=== PATIENT | male | born 1975 | race Caucasian/White ===

== ENCOUNTER 2016-10-03 10:19 | Emergency (ER) | payer OTHER ==
[~2016-10-03] VITALS: Ht 180.3 cm; Wt 72.3 kg
[~2016-10-03 10:19] MED LIST: ERYT.5%O OS; TYLE3 PO; Z.0.NO CURRENT MEDS
[2016-10-03 10:26] VITALS: BP 119/75; PULSE 75; RESP 14; TEMP 97.8; O2SAT 98
--- NOTE | 2016-10-03 11:09 | PD ---
HPI Chief Complaint: GI Complaint Time Seen by Provider: 10:38 Travel History International Travel<30 days: No Contact w/Intl Traveler<30days: No Traveled to known affect area: No History of Present Illness HPI 41-year-old male who presents with rectal pain. Patient has a history of a perirectal abscess 1 year ago. He states at that time they treated him with antibiotics and it seemed to improve. He states that 3 days ago he started expressing pain and swelling in his left perirectal area. He now has a area of hard painful swelling. He denies any fevers, chills. He states he was seen by a GI physician who told him that nothing needed to be done with the previous abscess. PFSH Past Medical History Medical History: Denies Significant Hx Tetanus Vaccination: > 5 Years Influenza Vaccination: No Past Surgical History Surgical History: No Previous Surgery Social History Alcohol Use: Yes ("SOMETIMES") Tobacco Use: No Substance Use: No Allergies-Medications (Allergen,Severity, Reaction): Coded Allergies: No Known Allergies (Verified , 10/03/16) Reported Meds & Prescriptions Reported Meds & Active Scripts Active Flagyl (Metronidazole) 500 Mg Tab 500 Mg PO TID Cipro (Ciprofloxacin HCl) 500 Mg Tab 500 Mg PO BID Review of Systems Except as stated in HPI: all other systems reviewed are Neg General / Constitutional: No: Fever, Chills Gastrointestinal: Positive: Other (left inner rectal pain with swelling), No: Nausea, Vomiting, Changes in Bowel Habits Genitourinary: No: Other Skin: Positive Other (swelling and tenderness in the left inner buttock fold by the rectum) Physical Exam Narrative GENERAL: Well-nourished, well-developed patient. SKIN: Warm and dry. HEAD: Normocephalic/atraumatic. GASTROINTESTINAL: Abdomen soft, non-tender, nondistended. On examination patient's rectum, the patient has a 3 x 3 indurated area with center fluctuance. It is tender to touch. MUSCULOSKELETAL: No cyanosis, or edema. Data Data Last Documented VS Vital Signs Date Time Temp Pulse Resp B/P Pulse Ox O2 Delivery O2 Flow Rate FiO2 10/03/16 12:45 56 16 93/52 97 Room Air 10/03/16 10:26 97.8 Orders Wound Culture And Gram Stain (10/03/16 12:06) Cefazolin Inj (Ancef Inj) (10/03/16 12:15) Lidocai-Epi 1%-1:100,000 Inj (Xylocaine- (10/03/16 12:15) Midazolam Inj (Versed Inj) (10/03/16 12:15) MDM Medical Decision Making Medical Screen Exam Complete: Yes Emergency Medical Condition: Yes Differential Diagnosis Perirectal abscess versus cellulitis versus mass Narrative Course 41-year-old gentleman who presents with rectal pain. The patient has what appears to be a perirectal abscess in his left inner buttock cold. The patient is afebrile. It is tender to touch. Dr. Garcia, general surgeon, was called and was gracious enough to come in and evaluated the patient. He did a bedside I and D. The patient tolerated the procedure well. He requested that we place the patient on Cipro and Flagyl. I will also write her prescription for Lortab. The patient is instructed to use sitz baths and to return of he develops any increased pain, fevers chills, or any other reason. Diagnosis Primary Impression: Perirectal abscess Additional Instructions: Sits baths 3 times daily for comfort. Return if increased pain, fevers chills, or any other reason that concerned him. Scripts Hydrocodone-Acetaminophen (Lortab)5-325 Mg Tab1 Tab PO Q6H PRN (PAIN) #10 TAB Ref 0 Prov:Doyle Gaston MD 10/03/16 Metronidazole (Flagyl)500 Mg Xdd400 Mg PO TID #21 TAB Ref 0 Prov:Doyle Gaston MD 10/03/16 Ciprofloxacin (Cipro)500 Mg Ilq900 Mg PO BID #14 TAB Ref 0 Prov:Doyle Gaston MD 10/03/16 Disposition: 01 DISCHARGE HOME Condition: Stable Doyle Gaston MD Oct 03, 2016 11:09
[2016-10-03] MEDS ORDERED: LIDOCAINE 1%/EPINEPHrine 1:100,000 SOLN 20 ML VIAL INFIL ONE (12:15)
[2016-10-03] MEDS ORDERED: ceFAZolin INJ 1,000 MG VIAL IM ONE (12:15)
[2016-10-03] MEDS ORDERED: MIDAZOLAM HCL 5 MG/ML VIAL (1 ML) IVP ONE (12:15)
[2016-10-03 12:25] VITALS: BP 111/58; PULSE 57; RESP 16; O2SAT 97
[2016-10-03 12:45] VITALS: BP 93/52; PULSE 56; RESP 16; O2SAT 97
[2016-10-03] MEDS ORDERED: CIPR-9 PO (12:53)
[2016-10-03] MEDS ORDERED: HYDR-3533 PO (12:53)
[2016-10-03] MEDS ORDERED: METR-1 PO (12:53)
[2016-10-03 13:10] VITALS: BP 109/67; PULSE 53; RESP 16; O2SAT 99
--- NOTE | 2016-10-04 11:17 | MP ---
cc: LEIGH DURAND MD DATE OF SURGERY 10/03/2016 PREOPERATIVE DIAGNOSIS Left buttock perirectal abscess POSTOPERATIVE DIAGNOSIS Left buttock perirectal abscess PROCEDURE I&D of perirectal abscess. SURGEON Leigh Durand MD ANESTHESIA 1% Xylocaine and conscious sedation Versed PROCEDURE The patient prepped and draped in the usual fashion. The area filtrated with 1% Xylocaine. The patient was given Versed. The incision made along side the abscess on the left buttock which was drained of about 15 cc of purulent material obtained which is cultured. Opened up with finger and then irrigated with saline and packing inserted, dressing applied. The patient tolerated the procedure well. Leigh Durand SJ/DJL /4:59 PM /11:15 AM
== END 2016-10-03 14:19 | disposition home or self-care (01) ==
LOC: NEPC 10:19
DX: K61.1 Rectal abscess (principal); B95.61 Methicillin susceptible Staphylococcus aureus infection as the cause of diseases classified elsewhere
CPT/HCPCS: 46040; 86403; 87070; 87186; 96372; 99283; J0690; J2250

== ENCOUNTER 2016-10-04 19:50 | Emergency (ER) | payer OTHER ==
[~2016-10-04] VITALS: Ht 182.9 cm; Wt 72.0 kg
[~2016-10-04 19:50] MED LIST changes: +CIPR-9 PO; -ERYT.5%O OS; +HYDR-3533 PO; +METR-1 PO; -TYLE3 PO; -Z.0.NO CURRENT MEDS
[2016-10-04 19:52] VITALS: BP 130/77; PULSE 76; RESP 16; TEMP 98.2; O2SAT 98
--- NOTE | 2016-10-04 20:57 | PD ---
HPI Chief Complaint: Skin Problem Time Seen by Provider: 20:47 Travel History International Travel<30 days: No Contact w/Intl Traveler<30days: No Traveled to known affect area: No History of Present Illness HPI 41-year-old white male presents to emergency department for recheck of a perirectal abscess which was incised and drained yesterday. He states that he had a high fever yesterday. This was followed by a low-grade fever earlier today before coming in. He states that he has been taking his antibiotics and we should. He states that he has not been doing sitz baths or doing any warm compresses. He was instructed to come back to the ER if symptoms worsen. He states that he does not feel that his abscess is much improved and he was concerned regarding his temperature changes. Denies any nausea vomiting. No abdominal pain. He states the pain in his rectum is actually much better. PFSH Past Medical History Narrative Medical Denies diabetes and hypertension. History of anal abscess in the past. Tetanus Vaccination: < 5 Years Past Surgical History Surgical History: No Previous Surgery Social History Alcohol Use: Yes ("SOMETIMES") Tobacco Use: No Substance Use: No Allergies-Medications (Allergen,Severity, Reaction): Coded Allergies: No Known Allergies (Verified , 10/04/16) Reported Meds & Prescriptions Reported Meds & Active Scripts Active Lortab (Hydrocodone-Acetaminophen) 5-325 Mg Tab 1 Tab PO Q6H PRN Flagyl (Metronidazole) 500 Mg Tab 500 Mg PO TID Cipro (Ciprofloxacin HCl) 500 Mg Tab 500 Mg PO BID Review of Systems Except as stated in HPI: all other systems reviewed are Neg Physical Exam Narrative GENERAL: This is a well-nourished, well-developed patient, in no apparent distress. SKIN: No rashes, ecchymoses or lesions. Warm and dry. HEAD: Atraumatic. Normocephalic. EYES: PERRL, EOMI, no discharge or injection. No scleral icterus. EARS: Clear NOSE: Nasal turbinates appear normal. THROAT: Mucosa pink and moist. Airway patent. NECK: Trachea midline. supple, moves head freely. LUNGS: Clear to auscultation. CV: Regular in rhythm. ABDOMEN: Soft nontender. EXT: No clubbing cyanosis or edema. Rectal: The patient has a wick in a open draining abscess to his left perianal area. It appears to be decompressed. There is no purulent drainage. The wound appears to be healing well. He does not appear to be having any complications. There is no involvement of the anus. No pain in the anus. Data Data Last Documented VS Vital Signs Date Time Temp Pulse Resp B/P Pulse Ox O2 Delivery O2 Flow Rate FiO2 10/04/16 19:52 98.2 76 16 130/77 98 MDM Medical Decision Making Medical Screen Exam Complete: Yes Emergency Medical Condition: Yes Medical Record Reviewed: Yes Differential Diagnosis MDM: High Differential diagnoses: Abscess, folliculitis, cellulitis, lymphangitis, abrasion, contact dermatitis Narrative Course This is healing perianal abscess The patient is offered IV antibiotics, CBC and chemistry. The patient has declined this at this time. I've explained to him that there is no way to assess his condition otherwise. He has opted to go home and continue his oral antibiotics and follow-up. Diagnosis Primary Impression: healing perianal abscess Patient Instructions: General Instructions Additional Instructions: Rest. Finish your antibiotics as directed. Follow-up with your doctor or your GI doctor in the next 24-48 hours. Return to the ER if you have worsening fever, worsening pain, or abdominal pain. Perform sitz baths twice daily. Warm compresses. Med/Other Pt SpecificInfo: No Change to Meds Disposition: 01 DISCHARGE HOME Condition: Stable Cm Girard Oct 04, 2016 20:56
== END 2016-10-04 21:01 | disposition home or self-care (01) ==
LOC: NEPB 19:50
DX: K61.0 Anal abscess (principal); R50.9 Fever, unspecified
CPT/HCPCS: 99282

== ENCOUNTER 2016-10-05 14:59 | Emergency (ER) | payer OTHER ==
[~2016-10-05] VITALS: Ht 180.3 cm; Wt 72.5 kg
[2016-10-05 15:00] VITALS: BP 129/73; PULSE 70; RESP 16; TEMP 97.9; O2SAT 98
--- NOTE | 2016-10-05 17:40 | PD ---
HPI Chief Complaint: Wound/Suture/Staple Re-Check Time Seen by Provider: 17:39 Travel History International Travel<30 days: No Contact w/Intl Traveler<30days: No Traveled to known affect area: No History of Present Illness HPI 41-year-old male presents to the emergency department for abscess packing removal that has been there for 2 days. He said he had abscess incised and drained and packed on October 04. He's been taking his antibiotics as prescribed. Reports improvement in the area. Denies fever, chills, nausea, vomiting. No known allergies. No other modifying factors or associated signs and symptoms. PFSH Past Medical History Diminished Hearing: No Social History Alcohol Use: Yes ("SOMETIMES") Tobacco Use: No Substance Use: No Allergies-Medications (Allergen,Severity, Reaction): Coded Allergies: No Known Allergies (Verified , 10/04/16) Reported Meds & Prescriptions Reported Meds & Active Scripts Active Lortab (Hydrocodone-Acetaminophen) 5-325 Mg Tab 1 Tab PO Q6H PRN Flagyl (Metronidazole) 500 Mg Tab 500 Mg PO TID Cipro (Ciprofloxacin HCl) 500 Mg Tab 500 Mg PO BID Review of Systems Except as stated in HPI: all other systems reviewed are Neg Physical Exam Narrative GENERAL: Well-nourished, well-developed male patient, in no acute distress SKIN: Warm and dry. Left perianal abscess with packing in place; area is without surrounding erythema, edema and without tenderness on palpation. HEAD: Atraumatic. Normocephalic. EYES: Pupils equal and round. No scleral icterus. No injection or drainage. ENT: Mucosa pink and moist. Airway patent. NECK: Trachea midline. CARDIOVASCULAR: Regular rate. RESPIRATORY: No accessory muscle use. GASTROINTESTINAL: Flat. MUSCULOSKELETAL: No obvious deformities. No clubbing. No cyanosis. No edema. NEUROLOGICAL: Awake and alert. Oriented 3. No obvious cranial nerve deficits. Motor grossly within normal limits. Normal speech. PSYCHIATRIC: Appropriate mood and affect; insight and judgment normal. Data Data Last Documented VS Vital Signs Date Time Temp Pulse Resp B/P Pulse Ox O2 Delivery O2 Flow Rate FiO2 10/05/16 15:00 97.9 70 16 129/73 98 Room Air MDM Medical Decision Making Medical Screen Exam Complete: Yes Emergency Medical Condition: Yes Medical Record Reviewed: Yes Differential Diagnosis Wound recheck, abscess packing removal, medical clearance Narrative Course 41-year-old male presents for packing removal to an abscess to the left perianal area. Packing removed. Patient tolerated well. The area is without surrounding erythema, edema, and without tenderness on palpation. Patient has antibiotics and is taking them as prescribed. Patient is afebrile and nontoxic- appearing. He denies fever, chills, nausea, vomiting at home. Instructed patient to continue antibiotics. Patient verbalized understanding and agreement with treatment plan. Patient is medically cleared and stable for discharge. Discussed reasons to return to the emergency department. Instructed patient to follow up with primary care provider. Patient agrees with treatment plan. The patients vital signs are stable and the patient is stable for outpatient follow-up and treatment. Patient discharged home, stable and in no acute distress. Diagnosis Primary Impression: Encounter for abscess packing removal Referrals: Primary Care Physician Patient Instructions: Abscess (ED), Abscess Follow-up (ED), General Instructions Departure Forms: Tests/Procedures, Work Release Enter return to work date: Oct 06, 2016 Additional Instructions: Complete full course of antibiotics Warm compresses to the affected area Keep area clean and dry Ibuprofen or Tylenol as directed and as needed for pain and inflammation Follow-up with primary care provider Return to emergency department immediately with worsening of symptoms Med/Other Pt SpecificInfo: No Change to Meds, No Meds Exist/No RX given Disposition: 01 DISCHARGE HOME Condition: Stable Anitra Mcclendon Oct 05, 2016 17:40
== END 2016-10-05 18:26 | disposition home or self-care (01) ==
LOC: NEPB 14:59
DX: K61.0 Anal abscess (principal); Z48.01 Encounter for change or removal of surgical wound dressing
CPT/HCPCS: 99281